=== PATIENT | female | born 1965 | race Caucasian/White ===

== ENCOUNTER 2016-09-15 23:53 | Emergency (ER) | payer OTHER ==
[~2016-09-15] VITALS: Ht 175.3 cm; Wt 108.9 kg
[2016-09-16 01:06] VITALS: BP 139/76
== END 2016-09-16 01:12 | disposition home or self-care (01) ==
LOC: ED 23:53
DX: S46.911A Strain of unspecified muscle, fascia and tendon at shoulder and upper arm level, right arm, initial encounter (principal); S83.8X1A Sprain of other specified parts of right knee, initial encounter; W03.XXXA Other fall on same level due to collision with another person, initial encounter; Y93.89 Activity, other specified; Y92.238 Other place in hospital as the place of occurrence of the external cause; Y99.8 Other external cause status

== ENCOUNTER 2016-09-19 05:59 | Emergency (ER) | payer OTHER ==
[2016-09-19 06:05] VITALS: BP 125/64
== END 2016-09-19 07:01 | disposition home or self-care (01) ==
LOC: ED 05:59
DX: S86.811A Strain of other muscle(s) and tendon(s) at lower leg level, right leg, initial encounter (principal); J45.909 Unspecified asthma, uncomplicated; E11.9 Type 2 diabetes mellitus without complications; Z88.1 Allergy status to other antibiotic agents; Z88.8 Allergy status to other drugs, medicaments and biological substances; X50.1XXA Overexertion from prolonged static or awkward postures, initial encounter; Y93.89 Activity, other specified; Y99.8 Other external cause status; Y92.89 Other specified places as the place of occurrence of the external cause
CPT/HCPCS: Q0092

== ENCOUNTER 2016-09-20 22:22 | Emergency (ER) | payer OTHER ==
[~2016-09-20] VITALS: Ht 175.3 cm; Wt 108.9 kg
[2016-09-20 22:58] VITALS: BP 141/72
== END 2016-09-20 22:58 | disposition home or self-care (01) ==
LOC: ED 22:22
DX: M25.561 Pain in right knee (principal); J45.909 Unspecified asthma, uncomplicated; E11.9 Type 2 diabetes mellitus without complications; Z88.2 Allergy status to sulfonamides; Z88.1 Allergy status to other antibiotic agents; Z88.8 Allergy status to other drugs, medicaments and biological substances; W18.30XA Fall on same level, unspecified, initial encounter; Y93.89 Activity, other specified; Y99.8 Other external cause status; Y92.89 Other specified places as the place of occurrence of the external cause

== ENCOUNTER → 2017-03-24 | Outpatient (CLI) | payer OTHER ==
[2017-03-24 07:40] LABS: BASOPHIL % 0.7 % (0-2); PLATELET COUNT 166 x10^3mcL (130-400); RED BLOOD CELLS 4.45 M/mm3 (4.10-5.10); RED CELL DISTRIBUTION WIDTH 14.3 % (11.5-14.5)
[2017-03-24 08:08] LABS: IRON 64 ug/dL (50-170); TOTAL IRON BINDING CAPACITY 393 ug/dL (250-450)
[2017-03-24 08:09] LABS: ALBUMIN 3.6 g/dL (3.4-5.0); ALKALINE PHOSPHATASE 84 U/L (46-116); ALT/SGPT 27 U/L (14-59); AST/SGOT 20 U/L (15-37); BILIRUBIN DIRECT 0.15 mg/dL (0.0-0.2); BILIRUBIN TOTAL 0.4 mg/dL (0.20-1.00); CALCIUM 8.8 mg/dL (8.5-10.1); CARBON DIOXIDE 29.8 mmol/L (21-32); CHLORIDE SERUM 105 mmol/L (98-107); CHOLESTEROL 147 mg/dL (<200); CREATININE SERUM 0.7 mg/dL (0.6-1.0); GFR1 > 60 mL/min; GLUCOSE SERUM 151 mg/dL (74-106); MAGNESIUM 2.1 mg/dL (1.8-2.4); SODIUM SERUM 142 mmol/L (136-145); TRIGLYCERIDES 67 mg/dL (<150)
[2017-03-24 08:12] LABS: HDL CHOLESTEROL 73 mg/dL (40-60)
[2017-03-24 08:15] LABS: FREE T4 1.04 ng/dL (0.76-1.46); T4(THYROXINE) 9.3 ug/dL (4.7-13.3)
[2017-03-24 08:26] LABS: T3 TOTAL 1.16 ng/mL
== END | disposition home or self-care (01) ==
LOC: LB 06:02
PROVIDERS: Internal Medicine
DX: E11.9 Type 2 diabetes mellitus without complications (principal)
CPT/HCPCS: 84439

== ENCOUNTER → 2018-03-09 | Outpatient (CLI) | payer OTHER | END | disposition home or self-care (01) | LOC: RD 10:40 | DX: R91.1 Solitary pulmonary nodule (principal) ==

== ENCOUNTER → 2018-04-14 | Outpatient (CLI) | payer OTHER | END | disposition home or self-care (01) | LOC: CT 06:11 | PROC: BW24ZZZ Computerized Tomography (CT Scan) of Chest and Abdomen (ICD-10-PCS; principal; 2018-04-14) | DX: R91.1 Solitary pulmonary nodule (principal) ==

== ENCOUNTER → 2019-03-14 | Outpatient (CLI) | payer OTHER ==
[2019-03-14 08:22] LABS: BASOPHIL % 0.5 % (0-2); PLATELET COUNT 177 x10^3mcL (130-400)
[2019-03-14 08:25] LABS: RED CELL DISTRIBUTION WIDTH 14.8 % (11.5-14.5)
[2019-03-14 08:30] LABS: ALBUMIN 3.4 g/dL (3.4-5.0); ALKALINE PHOSPHATASE 97 U/L (46-116); ALT/SGPT 26 U/L (14-59); AST/SGOT 19 U/L (15-37); BILIRUBIN DIRECT 0.09 mg/dL (0.0-0.2); BILIRUBIN TOTAL 0.2 mg/dL (0.20-1.00); CALCIUM 8.1 mg/dL (8.5-10.1); CARBON DIOXIDE 28.9 mmol/L (21-32); CHLORIDE SERUM 105 mmol/L (98-107); CHOLESTEROL 146 mg/dL (<200); CREATININE SERUM 0.7 mg/dL (0.6-1.0); GFR1 > 60 mL/min; GLUCOSE SERUM 159 mg/dL (74-106); SODIUM SERUM 140 mmol/L (136-145); TOTAL PROTEIN, SERUM 6.8 g/dL (6.4-8.2); TRIGLYCERIDES 76 mg/dL (<150)
[2019-03-14 08:35] LABS: HDL CHOLESTEROL 72 mg/dL (40-60)
[2019-03-15 08:08] LABS: microalbumin:creatinine ratio 6.8 (0.0-30.0)
== END | disposition home or self-care (01) ==
LOC: LB 06:36
PROVIDERS: Internal Medicine
DX: Z00.00 Encounter for general adult medical examination without abnormal findings (principal)
CPT/HCPCS: 77067

== ENCOUNTER → 2019-06-07 | Outpatient (CLI) | payer OTHER | END | disposition home or self-care (01) | LOC: RD 15:03 | DX: J45.909 Unspecified asthma, uncomplicated (principal); J45.998 Other asthma; R91.1 Solitary pulmonary nodule; G47.33 Obstructive sleep apnea (adult) (pediatric) ==

== ENCOUNTER → 2019-07-14 | Outpatient (CLI) | payer OTHER ==
[2019-07-14 08:41] LABS: ALBUMIN 3.7 g/dL (3.4-5.0); ALKALINE PHOSPHATASE 92 U/L (46-116); ALT/SGPT 29 U/L (14-59); AST/SGOT 22 U/L (15-37); BILIRUBIN TOTAL 0.3 mg/dL (0.20-1.00); CALCIUM 8.7 mg/dL (8.5-10.1); CARBON DIOXIDE 29.2 mmol/L (21-32); CHLORIDE SERUM 105 mmol/L (98-107); CREATININE SERUM 0.7 mg/dL (0.6-1.0); GFR1 > 60 mL/min; GLUCOSE SERUM 176 mg/dL (74-106); POTASSIUM SERUM 4.3 mmol/L (3.5-5.1); SODIUM SERUM 143 mmol/L (136-145); T4(THYROXINE) 8.7 ug/dL (4.7-13.3); TOTAL PROTEIN, SERUM 7.2 g/dL (6.4-8.2)
[2019-07-14 08:50] LABS: BASOPHIL % 0.5 % (0-2); PLATELET COUNT 178 x10^3mcL (130-400); RED CELL DISTRIBUTION WIDTH 15.1 % (11.5-14.5)
== END | disposition home or self-care (01) ==
LOC: LB 07:36
PROVIDERS: Obstetrics & Gynecology
DX: N95.1 Menopausal and female climacteric states (principal)
CPT/HCPCS: 82670; 84402; 84403; 84439; 86376

== ENCOUNTER → 2019-09-20 | Outpatient (CLI) | payer OTHER ==
[2019-09-20 08:20] LABS: T4(THYROXINE) 7.7 ug/dL (4.7-13.3)
[2019-09-21 13:05] LABS: ESTRADIOL 53.6 pg/mL (.)
== END | disposition home or self-care (01) ==
LOC: LB 06:03
PROVIDERS: Obstetrics & Gynecology
DX: E03.9 Hypothyroidism, unspecified (principal)
CPT/HCPCS: 82670; 84402; 84403

== ENCOUNTER → 2019-10-04 | Outpatient (CLI) | payer OTHER ==
[2019-10-04 09:18] LABS: T4(THYROXINE) 8.5 ug/dL (4.7-13.3)
[2019-10-05 09:10] LABS: ESTRADIOL 33.1 pg/mL (.)
== END | disposition home or self-care (01) ==
LOC: LB 06:48
PROVIDERS: Internal Medicine
DX: N95.1 Menopausal and female climacteric states (principal)
CPT/HCPCS: 82670; 84402; 84403; 84439

== ENCOUNTER → 2019-12-02 | Outpatient (CLI) | payer OTHER ==
[2019-12-02 07:53] LABS: T4(THYROXINE) 6.9 ug/dL (4.7-13.3)
== END | disposition home or self-care (01) ==
LOC: LB 06:14
PROVIDERS: ATTEND Obstetrics & Gynecology
DX: E03.9 Hypothyroidism, unspecified (principal); E55.9 Vitamin D deficiency, unspecified

== ENCOUNTER 2020-02-27 10:58 | Emergency (ER) | payer OTHER ==
[~2020-02-27] VITALS: Ht 175.3 cm; Wt 117.9 kg
[2020-02-27 11:06] VITALS: Ht 175.3 cm; Wt 117.9 kg
[2020-02-27 12:45] VITALS: BP 141/61
== END 2020-02-27 12:45 | disposition home or self-care (01) ==
LOC: ED 10:58
DX: M62.830 Muscle spasm of back (principal); J45.909 Unspecified asthma, uncomplicated; E11.9 Type 2 diabetes mellitus without complications; Z88.2 Allergy status to sulfonamides; Z90.89 Acquired absence of other organs; Z88.6 Allergy status to analgesic agent
CPT/HCPCS: 20552; J2001

== ENCOUNTER → 2020-04-27 | Outpatient (CLI) | payer OTHER | END | disposition home or self-care (01) | LOC: MA 06:47 | PROVIDERS: ATTEND Internal Medicine | PROC: BH02ZZZ Plain Radiography of Bilateral Breasts (ICD-10-PCS; principal; 2020-04-27) | DX: Z12.31 Encounter for screening mammogram for malignant neoplasm of breast (principal) | CPT/HCPCS: 77067 ==

== ENCOUNTER → 2020-04-30 | Outpatient (REF) | END | disposition home or self-care (01) | LOC: EH 07:16 | DX: Z20.828 Contact with and (suspected) exposure to other viral communicable diseases (principal) ==

== ENCOUNTER → 2020-07-06 | Outpatient (CLI) | payer OTHER ==
[2020-07-07 08:06] LABS: ESTRADIOL 57.4 pg/mL (.)
== END | disposition home or self-care (01) ==
LOC: LB 06:14
PROVIDERS: ATTEND Obstetrics & Gynecology
DX: N95.1 Menopausal and female climacteric states (principal)
CPT/HCPCS: 82670; 84403